=== PATIENT | female | born 1965 | race Caucasian/White ===

== ENCOUNTER 2022-11-30 11:17 | Inpatient (IN) | payer OTHER, SELFPAY ==
[2022-11-30] VITALS (40 sets, daily range): BP systolic 97–127; BP diastolic 60–98; PULSE 57–82; RESP 14–18; TEMP 36.3–37; O2SAT 90–100; BMI 24.1
--- NOTE | 2022-11-30 11:49 | ED_ITS ---
HPI - General Adult General Time Seen by Provider: 11:49 Date Seen: 11/30/22 Chief complaint: Abdominal Pain Stated complaint: Abdominal pain Time Seen by Provider: 11/30/22 11:31 Source: patient Mode of arrival: ambulatory Limitations: no limitations History of Present Illness HPI narrative: Ela is a 57-year-old female past medical history includes a cervical he rniated discs recently underwent physical therapy, hypothyroidism presents emerged department with by private car with abdominal pain. Patient states the pain started 24 hours ago, she was at home yesterday had oatmeal and some fruit, this was around 10:00 a.m. 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 He developed some right-sided abdominal pain, constant in nature, there was some radiation to the left. She had a chicken sandwich at lunch symptoms progressively gotten worse, is constant, sharp at times, no radiation to the back, there is radiation to her left. Has associated nausea, she had 2 episodes of vomiting 1st time I at 3:00 a.m. last night, she tried some Coca-Cola and had another episode, she continues to be nauseated, she has not ate or drink anything. She did have a normal colonoscopy 3-4 years ago. She thought she was constipated so she took some suppositories, she had 2 soft bowel movements, pain persisted, she took a thee prime vitamin a Corina next gave to her 3 weeks ago, she is trying to change her diet eating more vegetables, she thought it was that medications since it does make her stomach upset. Pain is 7/10 mostly located in the right lower quadrant area. No history of any abdominal surgeries. She has not had anything like this in the past Related Data Home Medications Medication Instructions Recorded Confirmed alendronate 70 mg tablet 70 mg PO QWEEK 11/30/22 11/30/22 calcium carbonate 600 mg calcium 1,200 mg PO BID 11/30/22 11/30/22 (1,500 mg) tablet (Calcium) cholecalciferol (vitamin D3) 25 2,000 unit PO DAILY 11/30/22 11/30/22 mcg (1,000 unit) tablet levothyroxine 100 mcg tablet 100 mcg PO DAILY 11/30/22 11/30/22 rosuvastatin 10 mg tablet (Crestor) 10 mg PO DAILY 04/26/23 04/26/23 varenicline 1 mg tablet 1 mg PO BID 11/30/22 11/30/22 Previous Rx's Medication Instructions Recorded amoxicillin 875 mg tablet 875 mg PO BID #10 tabs 11/30/22 hydrocodone 5 mg-acetaminophen 325 1 tab PO Q4H PRN Pain #20 tabs 11/30/22 mg tablet Allergies Allergy/AdvReac Type Severity Reaction Status Date / Time No Known Drug Allergies Allergy Verified 11/30/22 11:28 Review of Systems Status of ROS: Reports: 10 or more systems reviewed and unremarkable except as noted in History and below [facility] Medical History (Updated 11/30/22 @ 14:53 by Sophia Edwards MD) Hypothyroid ?E03.9 - Hypothyroidism, unspecified (ICD-10) 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 Smoking Status: Former smoker Do you use any of these nicotine containing products: None Second hand tobacco smoke exposure: No How many standard drinks containing alcohol do you have on a typical day: 1 or 2 How often do you have six or more drinks on one occasion: Daily or almost daily AUDIT-C Alcohol total score: 4 Non-prescribed substance use: marijuana (any form) service: No Exam Narrative: Exam Narrative: General: Mild distress, lying comfortably, nontoxic in appearance HEENT: Pupils equal round reactive to light, extraocular muscles intact Lungs: Clear to auscultation bilaterally Heart: normal sinus rhythm S1-S2 Abdomen: Soft, tender to palpation the right lower quadrant, there is rebound, bowel sounds present, no distension Muscle skeletal no lower extremity edema, nontender to palpation the lumbar spine and paraspinal musculature Neuro: alert awake and oriented x3, gait within normal limits Const: Vital Signs, click to edit/add: Vital Signs - 24 hr 11/30/22 11:29 11/30/22 11:27 11/30/22 11:28 Temperature 98.1 F Pulse Rate 82 75 Pulse Rate [Pulse Oximeter] 75 Respiratory Rate 16 Blood Pressure 114/77 Blood Pressure [Le ft Arm] Blood Pressure [Le ft Upper Arm] 114/77 Pulse Oximetry 95 95 95 Oxygen Delivery Me thod Room Air Oxygen Flow Rate 11/30/22 11:30 11/30/22 11:32 11/30/22 11:45 Temperature Pulse Rate 74 75 79 Pulse Rate [Pulse Oximeter] Respiratory Rate Blood Pressure 126/98 H Blood Pressure [Le ft Arm] Blood Pressure [Le ft Upper Arm] Pulse Oximetry 94 94 94 Oxygen Delivery Me thod Oxygen Flow Rate 11/30/22 12:00 11/30/22 12:01 11/30/22 12:02 Temperature Pulse Rate 73 74 73 Pulse Rate [Pulse Oximeter] Respiratory Rate Blood Pressure 127/82 Blood Pressure [Le ft Arm] Blood Pressure [Le ft Upper Arm] Pulse Oximetry 96 96 94 Oxygen Delivery Me thod Oxygen Flow Rate 11/30/22 12:43 11/30/22 12:45 11/30/22 13:00 Temperature Pulse Rate 78 70 75 Pulse Rate [Pulse Oximeter] Respiratory Rate Blood Pressure Blood Pressure [Le ft Arm] Blood Pressure [Le ft Upper Arm] Pulse Oximetry 97 95 95 Oxygen Delivery Me thod Oxygen Flow Rate 11/30/22 13:02 11/30/22 13:15 11/30/22 13:33 Temperature Pulse Rate 74 76 79 Pulse Rate [Pulse Oximeter] Respiratory Rate 16 Blood Pressure 109/60 123/79 Blood Pressure [Le ft Arm] Blood Pressure [Le ft Upper Arm] Pulse Oximetry 98 94 98 Oxygen Delivery Me thod Oxygen Flow Rate 11/30/22 13:34 11/30/22 13:45 11/30/22 14:00 Temperature Pulse Rate 78 80 75 Pulse Rate [Pulse Oximeter] Respiratory Rate Blood Pressure Blood Pressure [Le ft Arm] Blood Pressure [Le ft Upper Arm] Pulse Oximetry 98 94 95 Oxygen Delivery Me thod Oxygen Flow Rate 11/30/22 14:01 11/30/22 14:15 11/30/22 16:18 Temperature 98.2 F Pulse Rate 75 76 71 Pulse Rate [Pulse Oximeter] Respiratory Rate 16 Blood Pressure 119/82 110/89 Blood Pressure [Le ft Arm] Blood Pressure [Le ft Upper Arm] Pulse Oximetry 96 98 96 Oxygen Delivery Me thod Room Air Oxygen Flow Rate 11/30/22 16:25 11/30/22 17:00 11/30/22 16:30 Temperature Pulse Rate 68 59 L 63 Pulse Rate [Pulse Oximeter] Respiratory Rate 18 14 18 Blood Pressure 110/65 112/67 114/73 Blood Pressure [Le ft Arm] Blood Pressure [Le ft Upper Arm] Pulse Oximetry 98 95 99 Oxygen Delivery Me thod OxyMask Room Air OxyMask Oxygen Flow Rate 10 10 11/30/22 16:35 11/30/22 16:40 11/30/22 16:45 Temperature 98.4 F Pulse Rate 66 59 L 57 L Pulse Rate [Pulse Oximeter] Respiratory Rate 14 16 16 Blood Pressure 111/82 112/69 118/67 Blood Pressure [Le ft Arm] Blood Pressure [Le ft Upper Arm] Pulse Oximetry 99 100 100 Oxygen Delivery Me thod OxyMask OxyMask OxyMask Oxygen Flow Rate 10 10 6 11/30/22 16:50 11/30/22 16:55 11/30/22 17:04 Temperature 98.4 F 98.5 F Pulse Rate 57 L 62 64 Pulse Rate [Pulse Oximeter] Respiratory Rate 18 18 14 Blood Pressure 117/71 111/70 109/71 Blood Pressure [Le ft Arm] Blood Pressure [Le ft Upper Arm] Pulse Oximetry 100 99 96 Oxygen Delivery Me thod OxyMask Room Air Room Air Oxygen Flow Rate 6 11/30/22 17:50 Temperature 97.3 F L Pulse Rate 70 Pulse Rate [Pulse Oximeter] Respiratory Rate 14 Blood Pressure Blood Pressure [Le ft Arm] 107/70 Blood Pressure [Le ft Upper Arm] Pulse Oximetry Oxygen Delivery Me thod Room Air Oxygen Flow Rate Course Course Hospital Course: 11:30 AM: AIDET performed, vitals are normal at this time, workup will include IV peripheral, 500 mL bolus 0.9 normal saline, 0.5 mg IV Dilaudid, 4 mg of IV Zofran, will obtain CBC, CRP, CMP, urinalysis and lipase, suspect possible appendicitis, less likely diverticulitis or cholecystitis. Differential diagnosis include but not limited to life-threatening appendicitis, aortic aneurysm, mesentery ischemia, bowel perforation, volvulus and bowel obstruction. Other considerations are inflammatory bowel disease, constipation, cholecystitis, pancreatitis hepatitis gastritis GERD diverticulitis, PUD, pyelonephritis UTI renal colic/stone. Reevaluation(s) Reevaluation #1: CBC showed leukocytosis 15.55, 88.3% neutrophils, elevated is CRP at 3.1, urinalysis showed few bacteria and urine mucus urine bilirubin 1+, urine ketones 3+ urine protein 1+, concern for appendicitis will go ahead and had CT abdomen pelvis with IV contrast. Time: 14:07 Reevaluation #2: CT abdomen pelvis with IV contrast: Impression: Acute uncomplicated appendicitis. Patient and were updated on the imaging results, did speak to Dr. Edwards, general surgery, she will come see the patient and take her to the OR for appendectomy. Patient and were in agreement. Acceptance was made by Dr. Edwards. Vital Signs Vital signs: Initial Vital Signs Pulse Rate 82 11/30/22 11:27 Blood Pressure 114/77 11/30/22 11:27 Blood Pressure Mean 89 11/30/22 11:27 Pulse Oximetry 95 11/30/22 11:27 Vital Signs Pulse Rate 82 11/30/22 11:27 Blood Pressure 114/77 11/30/22 11:27 Pulse Oximetry 95 11/30/22 11:27 Temperature 97.3 F L 11/30/22 17:50 Pulse Rate 70 11/30/22 17:50 Respiratory Rate 14 11/30/22 17:50 Blood Pressure 107/70 11/30/22 17:50 Pulse Oximetry 96 11/30/22 17:04 Oxygen Delivery Method Room Air 11/30/22 17:50 Oxygen Flow Rate 6 11/30/22 16:50 Medical Decision Making Lab Data Labs: Lab Results 11/30/22 11/30/22 11/30/22 Range/Units 12:05 12:08 12:09 WBC 15.55 H (4.50-11.00) K/uL RBC 4.37 (4.00-5.20) m/uL Hgb 13.8 (12.0-16.0) gm/dL Hct 40.1 (33.0-51.0) % MCV 92 (80-100) fL MCH 32 (26-34) pg MCHC 34 (32-36) gm/dL RDW Coeff of Mellissa 11.9 (11.5-15.5) % Plt Count 174 (140-440) K/uL Neut % (Auto) 88.3 H (42.0-72.0) % Lymph % (Auto) 6.2 L (20-44) % Whitfield % (Auto) 5.0 (0.0-11.0) % Eos % (Auto) 0.0 (0.0-7.0) % Baso % (Auto) 0.3 (0.0-3.0) % Neut # (Auto) 13.70 H (1.7-7.0) K/uL Lymph # (Auto) 1.00 (0.90-2.90) K/uL Whitfield # (Auto) 0.80 (0.00-0.90) K/UL Eos # (Auto) 0.00 (0.00-0.50) K/uL Baso # (Auto) 0.00 (0.00-0.30) K/uL Sodium 137 (135-149) mmol/L Potassium 4.1 (3.6-5.1) mmol/L Chloride 104 (96-114) mmol/L Carbon Dioxide 25 (20-32) mmol/L BUN 14 (7-30) mg/dL Creatinine 0.6 (0.5-1.5) mg/dL Estimated Creat Clear 98.18 Estimated GFR 103 ml/min Glucose 109 (60-115) mg/dL Calcium 8.9 (8.4-10.6) mg/dL Total Bilirubin 1.1 (0.1-1.5) mg/dL AST 22 (12-35) U/L ALT 21 (4-35) U/L Alkaline Phosphatase 54 (40-150) U/L C-Reactive Protein 3.1 H (0.5-1.0) mg/dL Total Protein 7.5 (6.0-8.3) g/dL Albumin 4.5 (3.3-5.0) g/dL Lipase 46 (23-300) U/L Urine Color Dark yellow (Yellow) Urine Appearance Clear (Clear) Urine pH 6.0 (5.0-8.5) Ur Specific [place] >= 1.030 (1.000-1.030) Urine Protein 1+ A (Negative) Urine Glucose (UA) Negative (Negative) Urine Ketones 3+ A (Negative) Urine Blood Negative (Negative) Urine Nitrite Negative (Negative) Urine Bilirubin 1+ A (Negative) Urine Urobilinogen 1.0 (0.2-1.0) Ur Leukocyte Esterase Negative (Negative) Urine RBC 0-2 (0-2) Urine WBC 2-5 (0-5) Ur Squamous Epith Cells Few (None-Few) Urine Bacteria Few A (None) Urine Mucus Few A (None) SARS-CoV-2 (PCR) Negative SARS-CoV-2 (Negative) Discharge Plan Discharge Clinical Impression: Acute appendicitis Patient Disposition: Admitted As Inpatient Activity Level: No strenuous activity Activity Detail: No lifting more than 20 lb for 2 weeks Discharge Diet: Regular
[2022-11-30] MEDS: ONDANSETRON 2 MG/ML inj 4 MG IVP ×3 (12:15→16:38)
[2022-11-30] MEDS: HYDROmorphone 0.5 mg/0.5 ml inj IVP ×4 (12:15→18:56)
[2022-11-30] MEDS: 0.9 % SODIUM CHLORIDE 500 ML 500 ML IV (12:15)
[2022-11-30 12:18] LABS: Basophils Percent Auto 0.3 % (0.0-3.0); Hematocrit 40.1 % (33.0-51.0); Hemoglobin* 13.8 gm/dL (12.0-16.0); Immature Granulocytes Pct Auto 0.2 %; Lymphocytes Percent Auto 6.2 % (20-44); Mean Corpuscular HGB Conc 34 gm/dL (32-36); Mean Corpuscular Hemoglobin 32 pg (26-34); Mean Corpuscular Volume 92 fL (80-100); Neutrophils Percent Auto 88.3 % (42.0-72.0); Platelet Count* 174 K/uL (140-440); RDW Coefficient of Variation % 11.9 % (11.5-15.5); Red Blood Count 4.37 m/uL (4.00-5.20); White Blood Count* 15.55 K/uL (4.50-11.00)
[2022-11-30 12:19] LABS: Appearance Urine Clear (Clear); Bilirubin Urine 1+ (Negative); Blood Urine Negative (Negative); Color Urine Dark yellow (Yellow); Glucose Urine Negative (Negative); Ketones Urine 3+ (Negative); Leukocyte Esterase Urine Negative (Negative); Nitrite Urine Negative (Negative); Protein Urine 1+ (Negative); Specific Gravity Urine >= 1.030 (1.000-1.030)
[2022-11-30 12:20] LABS: Slide Review Reflex No
[2022-11-30 12:31] LABS: Albumin* 4.5 g/dL (3.3-5.0); Chloride* 104 mmol/L (96-114); Sodium* 137 mmol/L (135-149)
[2022-11-30 12:32] LABS: Potassium* 4.1 mmol/L (3.6-5.1)
[2022-11-30 12:33] LABS: Bacteria Urine Few; RBC Urine 0-2 (0-2); Squamous Epithelial Cell Urine Few (None-Few)
[2022-11-30 12:33] LABS: Creatinine* 0.6 mg/dL (0.5-1.5); Est. Creatinine Clearance* 98.18; Estimated Glomerular Filt Rate 103 ml/min
[2022-11-30 12:34] LABS: Alkaline Phosphatase* 54 U/L (40-150); Aspartate Amino Transferase* 22 U/L (12-35); Bilirubin Total* 1.1 mg/dL (0.1-1.5); Carbon Dioxide* 25 mmol/L (20-32); Total Protein* 7.5 g/dL (6.0-8.3)
[2022-11-30 12:34] LABS: Mucus Urine Few
[2022-11-30 12:35] LABS: Alanine Aminotransferase* 21 U/L (4-35); Blood Urea Nitrogen* 14 mg/dL (7-30); Calcium* 8.9 mg/dL (8.4-10.6); Glucose* 109 mg/dL (60-115); Lipase* 46 U/L (23-300)
[2022-11-30 12:37] LABS: C Reactive Protein* 3.1 mg/dL (0.5-1.0)
--- NOTE | 2022-11-30 12:45 | CRLHL7_ITS ---
For Patients: As a result of the Century Cures Act, medical imaging exams and procedure reports are released immediately into your electronic medical record. You may view this report before your referring provider. If you have questions, please contact your health care provider. INDICATION: RLQ PAIN., VOMITING, LEUKOCYTOSIS, DIVERTICULITIS TECHNIQUE: CT abdomen and pelvis acquired with 76 cc Isovue 370 IV contrast. COMPARISON: None. FINDINGS: Lower chest: The visualized lower lungs are aerated. No pleural or pericardial effusion. ABDOMEN: Liver: Normal enhancement. No focal suspicious hepatic lesions. Gallbladder and biliary: Normal gallbladder without radiopaque stone. Normal caliber bile ducts. Spleen: Normal size and enhancement. Pancreas: Normal enhancement without peripancreatic inflammatory changes or ductal dilatation. Adrenal glands: Normal adrenal glands. Kidneys and ureters: Normal enhancement. No radio-opaque calculi. No hydroureteronephrosis. Left renal cyst. GI tract: The stomach is relatively decompressed. Normal caliber small and large bowel loops. Appendix is dilated, fluid filled with appendicular lifts, hyperemic, with adjacent inflammatory stranding. Colonic diverticulosis without diverticulitis. Vascular structures: Patent abdominal aorta with atherosclerotic vascular calcifications. Circumaortic left renal vein, normal variant. Lymph nodes: No lymphadenopathy in the abdomen or pelvis by size criteria. Peritoneum: No free air, free fluid, or focal drainable fluid collection. PELVIS: Genitourinary system: Urinary bladder is decompressed. Age-appropriate uterus and ovaries. Bilateral Essure devices. SKELETAL STRUCTURES AND SOFT TISSUES: Right hip arthroplasty. Multilevel lumbar spondylosis. IMPRESSION: Acute uncomplicated appendicitis. Please note that all CT scans at this facility use dose modulation, iterative reconstruction, and/or weight-based dosing when appropriate to reduce radiation dose to as low as reasonably achievable. Dictated by Joel Fisher MD @ 11/30/2022 2:01:21 PM (Electronically Signed)
[2022-11-30 13:51] LABS: SARS PCR* Negative SARS-CoV-2 (Negative)
--- NOTE | 2022-11-30 14:39 | PM.GSHP ---
History of Present Illness History of Present Illness Date Seen: 11/30/22 Chief complaint: Abdominal pain Narrative: Ela Fagan is a 57 year old female who presents to the emergency department with approximately 24 hours of abdominal pain. She said yesterday morning around 10:00 a.m. she noted lower abdominal pain. She states that it was not necessarily on 1 side or the other. She states that the pain radiated across her lower abdomen. He states that the pain failed to get better so she came in to be seen. She states that she had nausea all yesterday and then vomited twice starting at 3:00 a.m.. She had a bowel movement this morning which was somewhat looser than usual for her. She denies any chest pain, shortness of breath or urinary symptoms. No fevers. She has never had anything like this before. She states that movement does not necessarily make it worse but laying on her side helps. 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 Smoking Status: Former smoker Do you use any of these nicotine containing products: None Second hand tobacco smoke exposure: No How many standard drinks containing alcohol do you have on a typical day: 1 or 2 How often do you have six or more drinks on one occasion: Daily or almost daily AUDIT-C Alcohol total score: 4 Non-prescribed substance use: marijuana (any form) service: No Meds Home Medications and Allergies Home Medications Medication Instructions Recorded Confirmed Type alendronate 70 mg tablet 70 mg PO QWEEK 11/30/22 11/30/22 History aspirin 81 mg tablet,delayed 81 mg PO DAILY 11/30/22 11/30/22 History release (Adult Aspirin Regimen) biocidin 1 tab 11/30/22 History bupropion HCl (smoking deter) 150 150 mg PO DAILY 11/30/22 11/30/22 History mg tablet,12 hr sustained-release(smoking deterrent) calcium carbonate 600 mg calcium 300 mg PO DAILY 11/30/22 11/30/22 History (1,500 mg) tablet (Calcium) levothyroxine 100 mcg tablet 100 mcg PO DAILY 11/30/22 11/30/22 History thee prime 1 tab 11/30/22 History omega-3 fatty acids 1,000 mg 1,000 mg PO DAILY 11/30/22 11/30/22 History capsule rosuvastatin 10 mg tablet (Crestor) 10 mg PO DAILY 11/30/22 11/30/22 History Allergies Allergy/AdvReac Type Severity Reaction Status Date / Time No Known Drug Allergies Allergy Verified 11/30/22 11:28 Exam Narrative: Exam Narrative: General appearance: Alert, cooperative, and in no distress Eyes: PERRLA, eye lids clear, and sclera white HENT Head: Normocephalic Ears: External ears normal Pulmonary: Breathing nonlabored on room air Cardiovascular Heart: Regular rate Extremities: warm and well perfused Gastrointestinal Abdominal: No scars. Abdomen with right lower quadrant guarding and rebound. No tenderness in the left lower quadrant. Musculoskeletal: Extremities: Upper: Both upper extremities have normal joint range of motion and intact strength. Lower: Both lower extremities have normal joint range of motion and intact strength. Skin: Normal skin color, texture, and turgor. No rashes or lesions. Neurologic: No focal deficits Psychiatric: Alert, oriented, cooperative, normal affect. Const: Vital Signs, click to edit/add: Vital Signs - 24 hr 11/30/22 11:29 11/30/22 11:27 11/30/22 11:28 Temperature 98.1 F Pulse Rate 82 75 Pulse Rate [Pulse Oximeter] 75 Respiratory Rate 16 Blood Pressure 114/77 Blood Pressure [Le ft Upper Arm] 114/77 Pulse Oximetry 95 95 95 Oxygen Delivery Me thod Room Air 11/30/22 11:30 11/30/22 11:32 11/30/22 11:45 Temperature Pulse Rate 74 75 79 Pulse Rate [Pulse Oximeter] Respiratory Rate Blood Pressure 126/98 H Blood Pressure [Le ft Upper Arm] Pulse Oximetry 94 94 94 Oxygen Delivery Me thod 11/30/22 12:00 11/30/22 12:01 11/30/22 12:02 Temperature Pulse Rate 73 74 73 Pulse Rate [Pulse Oximeter] Respiratory Rate Blood Pressure 127/82 Blood Pressure [Le ft Upper Arm] Pulse Oximetry 96 96 94 Oxygen Delivery Me thod 11/30/22 12:43 11/30/22 12:45 11/30/22 13:00 Temperature Pulse Rate 78 70 75 Pulse Rate [Pulse Oximeter] Respiratory Rate Blood Pressure Blood Pressure [Le ft Upper Arm] Pulse Oximetry 97 95 95 Oxygen Delivery Me thod 11/30/22 13:02 11/30/22 13:15 11/30/22 13:33 Temperature Pulse Rate 74 76 79 Pulse Rate [Pulse Oximeter] Respiratory Rate 16 Blood Pressure 109/60 123/79 Blood Pressure [Le ft Upper Arm] Pulse Oximetry 98 94 98 Oxygen Delivery Me thod 11/30/22 13:34 11/30/22 13:45 11/30/22 14:00 Temperature Pulse Rate 78 80 75 Pulse Rate [Pulse Oximeter] Respiratory Rate Blood Pressure Blood Pressure [Le ft Upper Arm] Pulse Oximetry 98 94 95 Oxygen Delivery Me thod 11/30/22 14:01 11/30/22 14:15 Temperature Pulse Rate 75 76 Pulse Rate [Pulse Oximeter] Respiratory Rate Blood Pressure 119/82 Blood Pressure [Le ft Upper Arm] Pulse Oximetry 96 98 Oxygen Delivery Me thod Results Results Labs: White blood cell count is 15.5 Electrolytes are within normal limits LFTs are within normal limits CRP is 3.[address] scan report/results: report reviewed and image reviewed Additional studies: INDICATION: RLQ PAIN., VOMITING, LEUKOCYTOSIS, DIVERTICULITIS TECHNIQUE: CT abdomen and pelvis acquired with 76 cc Isovue 370 IV contrast. COMPARISON: None. FINDINGS: Lower chest: The visualized lower lungs are aerated. No pleural or pericardial effusion. ABDOMEN: Liver: Normal enhancement. No focal suspicious hepatic lesions. Gallbladder and biliary: Normal gallbladder without radiopaque stone. Normal caliber bile ducts. Spleen: Normal size and enhancement. Pancreas: Normal enhancement without peripancreatic inflammatory changes or ductal dilatation. Adrenal glands: Normal adrenal glands. Kidneys and ureters: Normal enhancement. No radio-opaque calculi. No hydroureteronephrosis. Left renal cyst. GI tract: The stomach is relatively decompressed. Normal caliber small and large bowel loops. Appendix is dilated, fluid filled with appendicular lifts, hyperemic, with adjacent inflammatory stranding. Colonic diverticulosis without diverticulitis. Vascular structures: Patent abdominal aorta with atherosclerotic vascular calcifications. Circumaortic left renal vein, normal variant. Lymph nodes: No lymphadenopathy in the abdomen or pelvis by size criteria. Peritoneum: No free air, free fluid, or focal drainable fluid collection. PELVIS: Genitourinary system: Urinary bladder is decompressed. Age-appropriate uterus and ovaries. Bilateral Essure devices. SKELETAL STRUCTURES AND SOFT TISSUES: Right hip arthroplasty. Multilevel lumbar spondylosis. IMPRESSION: Acute uncomplicated appendicitis. Assessment and Plan Assessment and plan (1) Acute appendicitis: Status: Acute Plan The patient is a 57-year-old female with acute appendicitis. We discussed that appendectomy is the preferred treatment for this. This can most often be done laparoscopically. We discussed risks and benefits of the procedure including but not limited to bleeding, need for conversion to open, risk of injury to other structures, need for possible bowel resection, and abscess formation. The patient understands that the risk of abscess is higher if the appendix is perforated. For that reason, we generally keep patient is in the hospital on IV antibiotics until vital signs and white blood cell count had normalized. We also discussed recovery including 2 weeks of lifting restrictions.
--- NOTE | 2022-11-30 14:56 | ED.NURSE ---
Patient taken to OR. Belongings are at ER desk per patient request- her will pick them up shortly. Patient will go to 277 on m/s after.
[2022-11-30] MEDS: LACTATED RINGERS 1000 ML 1,000 ML 100 ML IV ×3 (14:57→21:57)
[2022-11-30] MEDS: PIPERACILLIN/TAZOBACTAM 3.375 GM INJ IVPB (15:05)
[2022-11-30] MEDS: BUPIVACAINE 0.5% 30 ML 7 ML INJECTION (15:21)
--- NOTE | 2022-11-30 16:17 | W.ANESCHARGE ---
Anesthesia Charges Start Date/Time Anesthesia Start Date: 11/30/22 Anesthesia Start Time: 14:57 Stop Date/Time Anesthesia Stop Date: 11/30/22 Anesthesia Stop Time: 16:23 Summary Emergency: MDA
[2022-11-30] MEDS: fentaNYL 100 MCG/2 ML inj 50 MCG IVP ×2 (16:23→16:30)
--- NOTE | 2022-11-30 16:27 | W.ANESCHARGE ---
Anesthesia Charges Start Date/Time Anesthesia Start Date: 11/30/22 Anesthesia Start Time: 14:57 Stop Date/Time Anesthesia Stop Date: 11/30/22 Anesthesia Stop Time: 16:23 Summary Emergency: [employer]
--- NOTE | 2022-11-30 16:46 | PM.GSPRC ---
Operative Note Date of procedure: 11/30/22 Pre-op diagnosis: Acute appendicitis Post-op diagnosis: Acute, gangrenous appendicitis Type of Procedure: Laparoscopic appendectomy Indications: The patient is a 57-year-old female with 2 days of abdominal pain. She presented to the emergency department was found to have leukocytosis as well as a dilated appendix on CT scan. This did not appear to be perforated. Appendectomy was recommended and she agreed to proceed. Procedure Description: After discussing the risks and benefits of the procedure, the patient signed informed consent.? The operative site was marked and the patient was brought to the operating room and placed on the operating table in supine position.? Care was taken to pad the patient's pressure points.?? The patient was then intubated by anesthesia.?? The operative site was then prepped and draped in the usual sterile fashion.? A time-out was then performed. ? Entrance to the abdomen was obtained via a 5 mm optical trocar in the left upper quadrant. The patient began coughing before the abdomen could be desufflated. The port was removed to prevent injury to the intra-abdominal structures. Once the patient was sedated more deeply, the abdomen was then entered again with a 5 mm trocar. The abdomen was insufflated and briefly surveyed for any signs of injury. There was some blood noted below the trocar site on the omentum at the greater curvature of the stomach. A 12 mm port was placed inferior to the umbilicus as well as a 5 mm port in the left lower quadrant. Both were done under direct vision. Evaluated the area at the greater curvature of the stomach where the omentum joint. This is where there was blood noted. There did not appear to be any injury to any of the vasculature for the serosa of the stomach. There was a blood clot noted at the abdominal wall, and it was felt as though the blood likely dripped down from the abdominal wall. The patient was then placed in Trendelenburg position with the right side up. The small bowel was gently moved out of the way and the appendix was in view. This was densely adherent to the retroperitoneum. The appendiceal base was visible. Using the suction oleo hasher and renderer, I was able to bluntly peel the appendix from the retroperitoneal attachments. The appendix appeared gangrenous and dilated. With manipulation of the appendix, it burst open and feculent material spilled into the periappendiceal area. This was quickly suctioned and contained. An appendicolith was removed from the abdomen. Once I identified the appendix along its course, I, using a Beba dissector created a mesenteric window at the base of the appendix. It appeared as though there was necrosis close to the appendiceal base. Therefore, using a 60 mm purple load Endo-JANE stapler I stapled the base of the appendix with a small cuff of cecum. I then used the LigaSure to carefully divide the mesoappendix, with care to stay close to the appendix itself and avoid injuring any other structures given the amount of inflammation in the area. A small amount of bleeding was cauterized, however hemostasis appeared excellent at the end of the case. The appendix was then removed from the abdomen using an Endo-Catch bag. The specimen was sent to pathology. The upper abdomen was again examined and there was no bleeding noted. The right lower quadrant was examined again and there was no stool, blood or purulent material noted. No irrigation was done to avoid spreading any bacteria or stool in the rest of the abdomen. The ports were removed and the abdomen desufflated. The 12 mm port site fascia was closed with 0 Vicryl. The skin was then closed with absorbable subcuticular suture. Sterile dressings were then applied. Instrument sponge and needle counts were correct at the end of the case. The patient was then woken and transported to the PACU in stable condition. The patient tolerated the procedure well. Findings: Acute appendicitis with gangrene and intraoperative perforation. Anesthesia: GETA Surgeon: Sophia Edwards MD Estimated blood loss (mL): 10 Specimen: Appendix Condition: stable Disposition: PACU
--- NOTE | 2022-11-30 16:57 | SUR.PHASEI ---
D) PT. C/O PAIN - 9/10 AND NAUSEA. I) ADMINISTERED DILAUDID,FENTANYL AND ZOFRAN - SEE EMAR A) PAIN 5/ AND NUASEA GONE.10 P) CONTINUE TO MONITOR PT. COMFORT LEVEL AND TREAT PER ORDERS.
[2022-11-30] MEDS: HYDROCODONE-ACETAMIN 5-325 MG 1 TAB PO (21:56)
[2022-11-30] MEDS: PIPERACILLIN/TAZOBACTAM 3.375 GM in 0.9 % SODIUM CHLORIDE Mini-bag 100 ML IVPB (22:11)
[2022-11-30] MEDS: 0.9 % SODIUM CHLORIDE 250 ml IV (22:17)
[2022-12-01] VITALS (7 sets, daily range): BP systolic 92–110; BP diastolic 60–70; PULSE 65–87; RESP 14–18; TEMP 36.6–37.1; O2SAT 92–96
--- NOTE | 2022-12-01 | PC.NURSE ---
Pt up to the floor sleepy but wakes to name. Rates pain 8/10 but dozes off during assessment. PRN meds per MAR given with relief. Surgical sites closed with steri-strips, clean and dry. Bowels active denies flatus. Pt will return home with at [place].
[2022-12-01] MEDS: HYDROCODONE-ACETAMIN 5-325 MG 1 TAB PO ×4 (03:25→21:00)
[2022-12-01] MEDS: PIPERACILLIN/TAZOBACTAM 3.375 GM in 0.9 % SODIUM CHLORIDE Mini-bag 100 ML IVPB ×4 (03:41→21:30)
[2022-12-01] MEDS: HYDROmorphone 0.5 mg/0.5 ml inj IVP ×5 (04:24→15:17)
--- NOTE | 2022-12-01 07:25 | PC.NURSE ---
Pt alert and oriented x3. Afebrile. Pt reports pain 7/10 in abdomen, pain managed with PRN medications. Pt?s x3 abdominal lap sites are open to air and CDI, bowel sounds are active and pt is voiding.? Pt denies SOB, chest pain, and N/V. Pt is up SBA.?
[2022-12-01 09:18] LABS: Basophils Percent Auto 0.2 % (0.0-3.0); Hematocrit 36.4 % (33.0-51.0); Hemoglobin* 12.1 gm/dL (12.0-16.0); Immature Granulocytes Pct Auto 0.2 %; Lymphocytes Percent Auto 8.7 % (20-44); Mean Corpuscular HGB Conc 33 gm/dL (32-36); Mean Corpuscular Hemoglobin 32 pg (26-34); Mean Corpuscular Volume 95 fL (80-100); Monocytes Percent Auto 6.9 % (0.0-11.0); Platelet Count* 150 K/uL (140-440); RDW Coefficient of Variation % 12.5 % (11.5-15.5); Red Blood Count 3.84 m/uL (4.00-5.20); White Blood Count* 12.02 K/uL (4.50-11.00)
[2022-12-01 09:19] LABS: Slide Review Reflex No
--- NOTE | 2022-12-01 09:57 | PM.GSPN ---
Subjective Subjective Date Seen: 12/01/22 Interval history: Ela is having quite a bit of pain in her right lower quadrant. She is feeling nauseated and has not wanted to take in more than clear liquids. She states that it hurts to get up and walk. She does not feel likely oral pain meds are helping at all. She was hoping that IV pain medication could be scheduled. Her pain is at worst a 7/10 and the IV pain medicine and brings it down to a 3/10. Exam Narrative: Exam Narrative: General: No acute distress CV: Regular rate and rhythm Respiratory: Clear to auscultation bilaterally Abdomen: Incisions with mild ecchymosis. No erythema. Patient has good urine output. Const: Vital Signs, click to edit/add: Vital Signs - 24 hr 11/30/22 11:29 11/30/22 11:27 11/30/22 11:28 Temperature 98.1 F Pulse Rate 82 75 Pulse Rate [Pulse Oximeter] 75 Respiratory Rate 16 Blood Pressure 114/77 Blood Pressure [Le ft Arm] Blood Pressure [Le ft Upper Arm] 114/77 Pulse Oximetry 95 95 95 Oxygen Delivery Me thod Room Air Oxygen Flow Rate 11/30/22 11:30 11/30/22 11:32 11/30/22 11:45 Temperature Pulse Rate 74 75 79 Pulse Rate [Pulse Oximeter] Respiratory Rate Blood Pressure 126/98 H Blood Pressure [Le ft Arm] Blood Pressure [Le ft Upper Arm] Pulse Oximetry 94 94 94 Oxygen Delivery Me thod Oxygen Flow Rate 11/30/22 12:00 11/30/22 12:01 11/30/22 12:02 Temperature Pulse Rate 73 74 73 Pulse Rate [Pulse Oximeter] Respiratory Rate Blood Pressure 127/82 Blood Pressure [Le ft Arm] Blood Pressure [Le ft Upper Arm] Pulse Oximetry 96 96 94 Oxygen Delivery Me thod Oxygen Flow Rate 11/30/22 12:43 11/30/22 12:45 11/30/22 13:00 Temperature Pulse Rate 78 70 75 Pulse Rate [Pulse Oximeter] Respiratory Rate Blood Pressure Blood Pressure [Le ft Arm] Blood Pressure [Le ft Upper Arm] Pulse Oximetry 97 95 95 Oxygen Delivery Me thod Oxygen Flow Rate 11/30/22 13:02 11/30/22 13:15 11/30/22 13:33 Temperature Pulse Rate 74 76 79 Pulse Rate [Pulse Oximeter] Respiratory Rate 16 Blood Pressure 109/60 123/79 Blood Pressure [Le ft Arm] Blood Pressure [Le ft Upper Arm] Pulse Oximetry 98 94 98 Oxygen Delivery Me thod Oxygen Flow Rate 11/30/22 13:34 11/30/22 13:45 11/30/22 14:00 Temperature Pulse Rate 78 80 75 Pulse Rate [Pulse Oximeter] Respiratory Rate Blood Pressure Blood Pressure [Le ft Arm] Blood Pressure [Le ft Upper Arm] Pulse Oximetry 98 94 95 Oxygen Delivery Me thod Oxygen Flow Rate 11/30/22 14:01 11/30/22 14:15 11/30/22 16:18 Temperature 98.2 F Pulse Rate 75 76 71 Pulse Rate [Pulse Oximeter] Respiratory Rate 16 Blood Pressure 119/82 110/89 Blood Pressure [Le ft Arm] Blood Pressure [Le ft Upper Arm] Pulse Oximetry 96 98 96 Oxygen Delivery Me thod Room Air Oxygen Flow Rate 11/30/22 16:25 11/30/22 17:00 11/30/22 16:30 Temperature Pulse Rate 68 59 L 63 Pulse Rate [Pulse Oximeter] Respiratory Rate 18 14 18 Blood Pressure 110/65 112/67 114/73 Blood Pressure [Le ft Arm] Blood Pressure [Le ft Upper Arm] Pulse Oximetry 98 95 99 Oxygen Delivery Me thod OxyMask Room Air OxyMask Oxygen Flow Rate 10 10 11/30/22 16:35 11/30/22 16:40 11/30/22 16:45 Temperature 98.4 F Pulse Rate 66 59 L 57 L Pulse Rate [Pulse Oximeter] Respiratory Rate 14 16 16 Blood Pressure 111/82 112/69 118/67 Blood Pressure [Le ft Arm] Blood Pressure [Le ft Upper Arm] Pulse Oximetry 99 100 100 Oxygen Delivery Me thod OxyMask OxyMask OxyMask Oxygen Flow Rate 10 10 6 11/30/22 16:50 11/30/22 16:55 11/30/22 17:04 Temperature 98.4 F 98.5 F Pulse Rate 57 L 62 64 Pulse Rate [Pulse Oximeter] Respiratory Rate 18 18 14 Blood Pressure 117/71 111/70 109/71 Blood Pressure [Le ft Arm] Blood Pressure [Le ft Upper Arm] Pulse Oximetry 100 99 96 Oxygen Delivery Me thod OxyMask Room Air Room Air Oxygen Flow Rate 6 11/30/22 17:50 11/30/22 17:30 11/30/22 17:45 Temperature 97.3 F L 97.6 F 98.0 F Pulse Rate 70 Pulse Rate [Pulse Oximeter] 68 69 Respiratory Rate 14 14 14 Blood Pressure Blood Pressure [Le ft Arm] 107/70 111/69 108/70 Blood Pressure [Le ft Upper Arm] Pulse Oximetry 91 92 Oxygen Delivery Me thod Room Air Room Air Room Air Oxygen Flow Rate 11/30/22 18:15 11/30/22 18:30 11/30/22 23:00 Temperature 98.4 F Pulse Rate Pulse Rate [Pulse Oximeter] 65 Respiratory Rate 16 16 16 Blood Pressure Blood Pressure [Le ft Arm] 103/70 103/68 102/63 Blood Pressure [Le ft Upper Arm] Pulse Oximetry 92 94 95 Oxygen Delivery Me thod Room Air Room Air Room Air Oxygen Flow Rate 11/30/22 20:00 11/30/22 21:00 11/30/22 23:55 Temperature 98.6 F Pulse Rate Pulse Rate [Pulse Oximeter] 64 64 Respiratory Rate 16 16 16 Blood Pressure Blood Pressure [Le ft Arm] 101/71 97/66 100/64 Blood Pressure [Le ft Upper Arm] Pulse Oximetry 95 94 96 Oxygen Delivery Me thod Room Air Room Air Room Air Oxygen Flow Rate 11/30/22 23:30 12/01/22 03:25 12/01/22 07:00 Temperature 97.8 F 98.1 F Pulse Rate Pulse Rate [Pulse Oximeter] 76 65 73 Respiratory Rate 14 14 16 Blood Pressure Blood Pressure [Le ft Arm] 97/70 101/62 Blood Pressure [Le ft Upper Arm] Pulse Oximetry 94 96 Oxygen Delivery Me thod Room Air Room Air Oxygen Flow Rate 12/01/22 07:49 Temperature 98.1 F Pulse Rate Pulse Rate [Pulse Oximeter] Respiratory Rate Blood Pressure Blood Pressure [Le ft Arm] Blood Pressure [Le ft Upper Arm] Pulse Oximetry Oxygen Delivery Me thod Oxygen Flow Rate Labs/Imaging Labs Labs: White blood cell count is down to 12. Hemoglobin is normal Progress Note: A&P Assessment and plan (1) Acute appendicitis: Status: Acute (2) S/P laparoscopic appendectomy: Status: Acute Plan Ela is a 57 yo female POD #1 from laparoscopic appendectomy for acute appendicitis with gangrene an intraoperative perforation. -she is having quite a bit of pain still. The appendix was very adherent in the pelvis and therefore quite a bit of dissection was necessary which likely explains her pain. No evidence of bleeding based on hemoglobin. -will add Toradol today -continue IS and encourage ambulation -continue IV antibiotics while she is inpatient -she will need to remain inpatient as long as she requires IV pain medication -advance diet as patient tolerates.
[2022-12-01] MEDS: ONDANSETRON 2 MG/ML inj IVP (15:17)
[2022-12-01] MEDS: KETOROLAC 15 MG/ML inj IVP (16:53)
[2022-12-01] MEDS: LACTATED RINGERS 1000 ML 1,000 ML 100 ML IV (17:06)
--- NOTE | 2022-12-01 18:26 | PC.NURSE ---
Patient alert and oriented x 3. Lung sounds clear, bowel sounds hypoactive. Reports sharp pain to right lower quadrant, utilizing prn dilaudid IV and prn norco. Patient reporting prn norco ineffective for pain management. Appetite poor, patient denies hunger but willing to try soup and crackers at 1445. 15 minutes after eating patient had moderate amount emesis of undigested food and po medication that was given. IV zofran given with effective results. Ambulates with SBA, patient up in chair this afternoon and able to walk hallway at 1700. Laparoscopic sites clean, dry and intact. Non-pitting edema to abdomen.
[2022-12-01] MEDS: ACETAMINOPHEN 325 MG TABLET 650 MG PO (21:00)
[2022-12-02] MEDS: LACTATED RINGERS 1000 ML 1,000 ML 100 ML IV (00:39)
[2022-12-02] MEDS: HYDROCODONE-ACETAMIN 5-325 MG 1 TAB PO ×4 (01:13→14:11)
[2022-12-02 03:45] VITALS: BP 111/67; PULSE 74; RESP 16; TEMP 36.9; O2SAT 90
[2022-12-02] MEDS: PIPERACILLIN/TAZOBACTAM 3.375 GM in 0.9 % SODIUM CHLORIDE Mini-bag 100 ML IVPB (03:45)
[2022-12-02 07:00] VITALS: BP 100/64; PULSE 67; RESP 18; TEMP 36.9; O2SAT 91
[2022-12-02 07:01] LABS: Basophils Absolute Auto 0.04 K/uL (0.00-0.30); Basophils Percent Auto 0.4 % (0.0-3.0); Eosinophils Absolute Auto 0.07 K/uL (0.00-0.50); Eosinophils Percent Auto 0.8 % (0.0-7.0); Hematocrit 33.7 % (33.0-51.0); Hemoglobin* 11.1 gm/dL (12.0-16.0); Immature Granulocytes Abs Auto 0.01 K/uL (0.00-0.30); Immature Granulocytes Pct Auto 0.1 %; Lymphocytes Percent Auto 13.1 % (20-44); Mean Corpuscular HGB Conc 33 gm/dL (32-36); Mean Corpuscular Hemoglobin 32 pg (26-34); Mean Corpuscular Volume 96 fL (80-100); Neutrophils Percent Auto 78.6 % (42.0-72.0); Platelet Count* 137 K/uL (140-440); RDW Coefficient of Variation % 12.2 % (11.5-15.5); White Blood Count* 9.03 K/uL (4.50-11.00)
[2022-12-02 07:03] LABS: Slide Review Reflex No
--- NOTE | 2022-12-02 07:18 | PC.NURSE ---
[id number] Shift Summary? [address] 59?Appendectomy ? Pt?s pain managed overnight (-10/14). 1-2 norco tabs given, no IV meds utilized. Nausea resolved and advanced to regular diet. Some indigestion, reminders to move slowly.?Benadryl for itching and senna just added to PRNs, pt would like them this morning. Steady gait and SBA with IV pole. On LR @ 100mL, low output overnight. Urine is much less concentrated by end of shift. Vitals stable and on room air.?Plans to DC home today. ?
[2022-12-02 07:24] LABS: Chloride* 102 mmol/L (96-114)
[2022-12-02 07:25] LABS: Potassium* 3.7 mmol/L (3.6-5.1); Sodium* 134 mmol/L (135-149)
[2022-12-02 07:27] LABS: Creatinine* 0.8 mg/dL (0.5-1.5); Est. Creatinine Clearance* 73.63; Estimated Glomerular Filt Rate 85 ml/min
[2022-12-02 07:28] LABS: Blood Urea Nitrogen* 12 mg/dL (7-30); Calcium* 8.1 mg/dL (8.4-10.6); Carbon Dioxide* 27 mmol/L (20-32); Glucose* 104 mg/dL (60-115)
[2022-12-02] MEDS: diphenhydrAMINE 25 MG CAPSULE PO (07:57)
[2022-12-02] MEDS: SENNOSIDES/DOCUSATE TABLET PO (10:29)
[2022-12-02 10:31] VITALS: TEMP 37.2
[2022-12-02 11:00] VITALS: BP 106/70; PULSE 80; RESP 20; TEMP 37.2; O2SAT 92
--- NOTE | 2022-12-02 13:12 | PM.DS1 ---
DS: Providers Provider Date Seen: 12/02/22 Date of admission: 12/01/22 13:46 Primary care physician: Emperatriz Berman MD Admitting Clinician: Sophia Edwards MD Attending Physician on discharge: Sophia Edwards MD Date of Discharge: 12/02/22 DS: Diagnosis Discharge Diagnosis (1) S/P laparoscopic appendectomy: Status: Acute (2) Acute appendicitis: Status: Acute DS: Summary Hospital Course Hospital Course: The patient presented to the emergency department on 11/30/2022 and was found to have acute appendicitis. She went to the OR for appendectomy. Found to have a gangrenous appendix the significant inflammation which did perforate when it was manipulated. She was admitted to the hospital postoperatively on IV antibiotics. She had a significant amount of pain and nausea on postop day 1 and therefore remained inpatient. Fortunately on postop day 2 her pain was down to a 1/10 and she was requiring only 1 pain pill. She was tolerating a diet without nausea and was ambulating and voiding without difficulty. She was deemed safe for discharge home. Time Spent with Patient Time attestation: Total time spent providing and/or coordinating discharge services: Exam Narrative: Exam Narrative: General: No acute distress CV: Regular rate Respiratory: Breathing nonlabored on room air Abdomen: incisions clean, dry and intact without erythema. Abdomen is mildly distended but soft and less tender than yesterday. Const: Vital Signs, click to edit/add: Vital Signs - 24 hr 12/01/22 15:00 12/01/22 20:54 12/01/22 23:00 Temperature 97.9 F 98.7 F Pulse Rate [Pulse Oximeter] 87 68 68 Respiratory Rate 16 18 18 Blood Pressure [Le ft Arm] 110/63 99/62 Pulse Oximetry 94 92 Oxygen Delivery Me thod Room Air Oxygen Flow Rate 12/01/22 23:00 12/02/22 03:45 12/02/22 07:00 Temperature 98.3 F 98.5 F Pulse Rate [Pulse Oximeter] 72 74 67 Respiratory Rate 18 16 18 Blood Pressure [Le ft Arm] 99/66 111/67 Pulse Oximetry 92 90 Oxygen Delivery Me thod Room Air Room Air Oxygen Flow Rate 6 12/02/22 07:00 12/02/22 10:31 12/02/22 11:00 Temperature 98.4 F 98.9 F 98.9 F Pulse Rate [Pulse Oximeter] 67 80 Respiratory Rate 18 20 Blood Pressure [Le ft Arm] 100/64 106/70 Pulse Oximetry 91 92 Oxygen Delivery Me thod Room Air Room Air Oxygen Flow Rate DS: Data Data Completed and Pending Labs on day of discharge: Labs from last 24 hours 12/02/22 06:21 WBC 9.03 RBC 3.50 L Hgb 11.1 L Hct 33.7 MCV 96 MCH 32 MCHC 33 RDW Coeff of Mellissa 12.2 Plt Count 137 L Neut % (Auto) 78.6 H Lymph % (Auto) 13.1 L [place] % (Auto) 7.0 Eos % (Auto) 0.8 Baso % (Auto) 0.4 Neut # (Auto) 7.10 H Lymph # (Auto) 1.20 [place] # (Auto) 0.60 Eos # (Auto) 0.07 Baso # (Auto) 0.04 Sodium 134 L Potassium 3.7 Chloride 102 Carbon Dioxide 27 BUN 12 Creatinine 0.8 Estimated Creat Clear 73.63 Estimated GFR 85 Glucose 104 Calcium 8.1 L Discharge Plan Discharge Disposition: Home, Self-Care Date of Admission: 12/01/22 13:46 Attending Provider on Discharge: Sophia Edwards Primary Care Provider: Emperatriz Berman Condition: Stable Anticipated Discharge Date/Time: 12/02/22 15:02 Discharge Medications: New hydrocodone-acetaminophen 5-325 mg Tablet 1 tab PO Q4H PRN (Reason: Pain) Qty: 20 0RF amoxicillin 875 mg tablet 875 mg PO BID Qty: 10 0RF ketorolac 10 mg tablet 10 mg PO TID PRN (Reason: pain) 3 Days Qty: 7 0RF Continued alendronate 70 mg tablet 70 mg PO QWEEK rosuvastatin [Crestor] 10 mg tablet 10 mg PO DAILY levothyroxine 100 mcg tablet 100 mcg PO DAILY calcium carbonate [Calcium 600] 600 mg calcium (1,500 mg) tablet 1,200 mg PO BID varenicline 1 mg tablet 1 mg PO BID cholecalciferol (vitamin D3) 25 mcg (1,000 unit) tablet 2,000 unit PO DAILY Discharge Orders: Discharge Order (Routine); Ordered 12/02/22 Ordered By: Sophia Edwards Patient Education: Surgical Site Infections (DC), General Anesthesia (DC), Laparoscopic Appendectomy (DC), Post-Operative Instructions: Appendectomy Additional Instructions: Wound care: Your sutures are under the skin and will dissolve over time. Leave steri strips (white bandages) over incisions until they fall off (or remove after 7 days). OK to shower tomorrow but avoid bathing, soaking or swimming for 2 weeks. Pat the incisions dry. No need to wash or scrub the area. Apply ice to the area as needed for swelling. It is also OK to use a heating pad if this provides more comfort to you. Pain control: You were prescribed an opiod pain medication called Hydrocodone/acetaminophen. This medication contains acetaminophen (Tylenol). If you are taking your prescribed pain pills 4 times daily, do not take additional acetaminophen. This medication (Hydrocodone) can cause constipation. As your pain improves, you can try taking acetaminophen instead of the prescribed pain pill. You were also prescribed a pain medication called Ketorolac that is a potent anti-inflammatory medication. This medication will not cause constipation but can cause upset stomach. Consider taking an [id number]-[id number] antacid such as famotidine while you are using it. Take an [id number] stool softener while you are taking prescribed pain medications to help alleviate constipation. I recommend Senna and/or Colace. Take as directed on package. If you have not had a bowel movement in 4 days, try taking Miralax or milk of magnesia as directed on the package. All of these are available over the counter. Follow-up Follow up with Dr. Edwards in 2-3 weeks Please call if you are experiencing severe pain, nausea, vomiting, difficulty urinating, fever or have not had bowel movement in 5 days after surgery. Activity Level: No strenuous activity Activity Detail: No lifting more than 20 lb for 2 weeks Discharge Diet: Regular Follow Up Appointments: Sophia Edwards MD [Staff Physician] - 12/19/22 2:15 pm ([facility] f/u with Dr. Edwards) Forms: Work/School Release
[2022-12-02 13:54] VITALS: BP 109/71; PULSE 70; RESP 20; TEMP 37.2
--- NOTE | 2022-12-02 15:47 | PC.NURSE ---
Discharge Note: Pt moving well independently, ambulated x2 around entire M/S unit. Poor appetite this morning, but pt did eat 75% of lunch tray and tolerated this well. Rates pain 1-3/10, pt needing 1 tab [place] approx. Q4H. Lap sites intact with scant amount of dried bloody drainage. Pt verbalized understanding of discharge instructions and follow up appointments. She was discharged to home via wheelchair in the care of her at 1542.
== END 2022-12-02 15:57 | disposition home or self-care (01) | DRG 340 ==
LOC: ED 14:31 → SS 14:37 → MEDSURG 17:58 → SS 12-01 13:59 → MEDSURG 12-01 16:43
PROVIDERS: Admitting Provider Surgery; Emergency Provider Student in an Organized Health Care Education/Training Program; PCP Family Medicine; Visit Provider Surgery
PROC: 0DTJ4ZZ Resection of Appendix, Percutaneous Endoscopic Approach (ICD-10-PCS; CPT 44970; principal; 2022-11-30 14:30)
DX: K35.32 Acute appendicitis with perforation, localized peritonitis, and gangrene, without abscess (principal); E03.9 Hypothyroidism, unspecified
CPT/HCPCS: 00790; 00840; 36415; 74177; 80048; 80053; 81003; 81015; 83690; 85025; 86140; 87086; 87635; 88304; 99140; 99283; 99284; 99285; A9270; J0330; J1100; J1170; J1885; J2250; J2405; J2543; J2704; J2710; J3010; J3490; J7050; J7120; Q9967

== ENCOUNTER 2022-12-06 09:23 | Outpatient (CLI) | payer OTHER, SELFPAY ==
--- NOTE | 2022-12-06 09:30 | CRLHL7_ITS ---
For Patients: As a result of the 21st Century Cures Act, medical imaging exams and procedure reports are released immediately into your electronic medical record. You may view this report before your referring provider. If you have questions, please contact your health care provider. INDICATION: Worsening abdominal pain status post appendectomy 11/30/2022. COMPARISON: The preoperative study of November 30, 2022 TECHNIQUE: CT examination of the abdomen and pelvis was performed following the uneventful intravenous administration of 70 seconds cc of Isovue 370. Thin section axial images were obtained from the lung bases through the pubic symphysis. Oral contrast was not administered. Please note that all CT scans at this facility use dose modulation, iterative reconstruction, and/or weight-based dosing when appropriate to reduce radiation dose to as low as reasonably achievable. FINDINGS: LUNG BASES: Bibasilar atelectasis, right greater than left. Very small left effusion. Small to moderate right effusion. LIVER/BILIARY SYSTEM:The liver is normal in size and configuration. There is no focal mass and there is no intra- or extra hepatic biliary ductal dilatation.The gallbladder is distended. There is mild inflammatory change in this area. I favor that this is regional inflammatory change from the treated appendicitis rather than gallbladder disease. If there is pain in the right upper quadrant, consider correlation with sonography. ADRENALS: Normal KIDNEYS, URETERS and BLADDER:No significant renal finding. No hydronephrosis or hydroureter. The bladder is obscured by streak artifact from right hip arthroplasty but no abnormalities are noted. SPLEEN:Normal appearance. PANCREAS: Appears normal. RETROPERITONEUM and MESENTERY: There is no mass, adenopathy or aortic aneurysm. GASTROINTESTINAL SYSTEM: There are findings of a recent appendectomy. There is inflammatory change in the right lower quadrant, the right flank and the right paracolic gutter extending up to the gallbladder. There is no definite collection this area. There is mild free fluid. PELVIS: No mass, adenopathy or free fluid.Essure wires are noted. OSSEOUS STRUCTURES and ABDOMINAL WALL: There is an age-appropriate appearance of the osseous structures.No significant abdominal wall defect. OTHER: No free fluid or free air. IMPRESSION: 1. Status post appendectomy. There is inflammatory change of the right lower quadrant, the right flank and extending up the right paracolic gutter up to the gallbladder. There is mild free fluid in the right lower quadrant and partially extending into the pelvis. There is no definite collection or free air. 2. The gallbladder is distended and there is pericholecystic inflammatory change. I favor that this is inflammation tracking up from the operative bed rather than gallbladder disease. Correlate with right upper quadrant tenderness. 3. Bibasilar atelectasis, right greater than left. Small left effusion and small to moderate right effusion. The lung findings are new 4. Other incidental nonacute appearing findings as above. Please note that all CT scans at this facility use dose modulation, iterative reconstruction, and/or weight-based dosing when appropriate to reduce radiation dose to as low as reasonably achievable. Dictated by Alexy Briceño MD @ 12/06/2022 10:52:07 AM (Electronically Signed)
== END 2022-12-06 09:24 | disposition home or self-care (01) ==
LOC: CT 09:24
PROVIDERS: PCP Family Medicine; Visit Provider Surgery
DX: R10.9 Unspecified abdominal pain (principal); Z90.49 Acquired absence of other specified parts of digestive tract
CPT/HCPCS: 74177; Q9967